=== PATIENT | female | born 1975 | race African-American/Black ===

== ENCOUNTER 2019-08-13 11:50 | Emergency (ER) | payer BC, OTHER ==
[~2019-08-13] VITALS: Ht 172.7 cm; Wt 104.3 kg
[2019-08-13 12:55] LABS: Urine Bacteria NONE SEEN /hpf (None Seen); Urine Blood 1+ /uL (Negative); Urine Specific Gravity 1.009 (1.001-1.035); Urine WBC 1 /hpf (0 - 5)
[2019-08-13 13:37] LABS: Basophils # (auto) 0 10 ^3/uL (0-0.2); Basophils % (auto) 0.7 % (0.0-2.0); Eosinophils # (auto) 0 10 ^3/uL (0-0.8); Hematocrit 40.9 % (36.0-46.0); Hemoglobin 13.6 g/dL (12.2-16.2); Lymphocytes # (auto) 2.1 10 ^3/uL (0.4-5.4); Lymphocytes % (auto) 47.2 % (10.0-50.0); Mean Corpuscular Hemoglobin 27.3 pg (28.0-32.0); Mean Corpuscular Hgb Conc. 33.3 g/dL (32.0-36.0); Monocytes # (auto) 0.3 10 ^3/uL (0-1.3); Neutrophils % (auto) 45.1 % (37.0-80.0); Nucleated Red Blood Cells % 0.2 %; Platelet Count (auto) 372 10^3/uL (140-450); Red Blood Cells 4.98 10^6/uL (4.0-5.20); Red Cell Distribution Width 14.1 % (11.8-14.3); White Blood Cell 4.3 10^3/uL (4.4-10.8)
[2019-08-13] MEDS ORDERED: SODIUM CHLORIDE 0.9% 1,000 ML IVB ONE (15:12)
[2019-08-13] MEDS ORDERED: KETOROLAC TROMETH 15 mg/ml 1ML VL IV ONE (15:15)
[2019-08-13 15:16] LABS: Alanine Aminotransferase 49 U/L (13-56); Albumin 3.9 g/dL (3.4-5.0); Anion Gap 8 (5-15); Aspartate Aminotransferase 20 U/L (15-37); BUN/Creatinine Ratio 7.1; Blood Urea Nitrogen 6 mg/dL (7-18); Calcium 8.8 mg/dL (8.5-10.1); Carbon Dioxide 31 mmol/L (21-32); Chloride 101 mmol/L (98-107); GFR African American 95 mL/min; GFR Non-African American 79 mL/min; Glucose 114 mg/dL (74-106); Sodium 140 mmol/L (136-145)
[2019-08-13 15:19] LABS: Alkaline Phosphatase 78 U/L (45-117); Bilirubin, Total 0.4 mg/dL (0.2-1.0); Total Protein 8.2 g/dL (6.4-8.2)
[2019-08-13] MEDS ORDERED: KETOROLAC TROMETH 30 MG/ML 1ML VIAL ONE (15:37)
[2019-08-13] MEDS ORDERED: PROMETHAZINE HCL 25 MG/ML 1ML IV ONE (17:15)
[2019-08-13] MEDS ORDERED: MORPHINE SULF INJ 2 MG/ML SYRINGE 1ML IV ONE (17:15)
[2019-08-13] MEDS ORDERED: POTASSIUM CHL 20 Meq TABLET PO ONE (18:00)
[2019-08-13 18:31] VITALS: BP 140/85
== END 2019-08-13 19:12 | disposition home or self-care (01) ==
LOC: ER 11:50
DX: R10.31 Right lower quadrant pain (principal); E87.6 Hypokalemia; E11.9 Type 2 diabetes mellitus without complications; I10 Essential (primary) hypertension
CPT/HCPCS: 36415; 74176; 80053; 81001; 81025; 83735; 85025; 96374; 96375; 99284; J1885; J2270; J2550; 96365

== ENCOUNTER 2021-09-07 08:56 | Inpatient (IN) | payer BC ==
[~2021-09-07] VITALS: Ht 172.7 cm; Wt 108.7 kg
[2021-09-07 10:28] LABS: Urine Bacteria FEW /hpf (None Seen); Urine Blood Negative /uL (Negative); Urine Specific Gravity 1.004 (1.001-1.035); Urine WBC 1 /hpf (0 - 5)
[2021-09-07 10:36] LABS: Basophils # (auto) 0 10 ^3/uL (0-0.2); Basophils % (auto) 0.8 % (0.0-2.0); Eosinophils # (auto) 0 10 ^3/uL (0-0.8); Eosinophils % (auto) 0.8 % (0.0-7.0); Hematocrit 36.7 % (36.0-46.0); Hemoglobin 12.4 g/dL (12.2-16.2); Lymphocytes # (auto) 2.3 10 ^3/uL (0.4-5.4); Lymphocytes % (auto) 39.6 % (10.0-50.0); Mean Corpuscular Hemoglobin 28.2 pg (28.0-32.0); Mean Corpuscular Hgb Conc. 33.7 g/dL (32.0-36.0); Mean Corpuscular Volume 83.7 fL (80.0-100.0); Monocytes # (auto) 0.3 10 ^3/uL (0-1.3); Neutrophils % (auto) 52.8 % (37.0-80.0); Nucleated Red Blood Cells % 0.2 %; Red Blood Cells 4.38 10^6/uL (4.0-5.20); Red Cell Distribution Width 13.7 % (11.8-14.3); White Blood Cell 5.7 10^3/uL (4.4-10.8)
[2021-09-07 10:43] LABS: Calcium 8.9 mg/dL (8.5-10.1); Potassium 3.1 mmol/L (3.5-5.1)
[2021-09-07 10:48] LABS: Albumin 3.9 g/dL (3.4-5.0); BUN/Creatinine Ratio 7.6; Bilirubin, Total 0.4 mg/dL (0.2-1.0); Total Protein 7.7 g/dL (6.4-8.2)
[2021-09-07] MEDS ORDERED: POTASSIUM CHL 20 Meq TABLET PO ONE (11:30)
[2021-09-07] MEDS ORDERED: KETOROLAC TROMETH 60MG/2ML VIAL IM ONE (11:30)
[2021-09-07] MEDS ORDERED: SODIUM CHLORIDE 0.9% 1,000 ML IV ONE (12:45)
[2021-09-07] MEDS ORDERED: MORPHINE SULFATE 4 MG/ML SYR/VIAL IV ONE (12:45)
[2021-09-07] MEDS ORDERED: ONDANSETRON HCL 4 MG/2 ML VIAL IV ONE (12:45)
[2021-09-07] MEDS ORDERED: LORazepam 0.5 MG TAB PO PRN (13:00)
[2021-09-07] MEDS ORDERED: MORPHINE SULFATE INJ 2 MG/ml SYRG IV PRN (13:00)
[2021-09-07] MEDS ORDERED: hydrALAZINE HCL 20 MG/ML VL IV PRN (13:00)
[2021-09-07] MEDS ORDERED: NITROGLYCERIN 0.4 MG SL TAB SL PRN (13:00)
[2021-09-07] MEDS ORDERED: ACETAMINOPHEN 325 MG TAB PO PRN (13:00)
[2021-09-07] MEDS ORDERED: DEXTROSE (50%) 50ML SYRG IV PRN (13:00)
[2021-09-07] MEDS: cefTRIAXone 1GM/50ML D5W 50 ML IV SCH (13:14)
[2021-09-07] MEDS: SODIUM CHLORIDE 0.9% 1,000 ML IV SCH ×2 (13:46→21:33)
[2021-09-07 13:59] LABS: Magnesium 2.2 mg/dL (1.6-2.6); Phosphorus 2.4 mg/dL (2.5-4.90)
[2021-09-07] MEDS: metroNIDAZOLE 500MG/100ML 100 ML IV SCH ×2 (14:47→21:31)
[2021-09-07 15:52] LABS: INR 1.12 (0.9-1.15)
[2021-09-07] MEDS: MORPHINE SULFATE INJ 2 MG/ml SYRG IV PRN ×2 (16:06→22:19)
[2021-09-07] MEDS: ONDANSETRON HCL 4 MG/2 ML VIAL IV PRN ×2 (16:06→22:13)
[2021-09-07] MEDS: InsuLIN REG 1unit/0.01ml Soln (100units/ml) SC SCH ×2 (17:00→21:33)
[2021-09-07] MEDS: ACCU-CHEK COMFORT CURVE STRIP VI SCH ×2 (17:02→21:33)
[2021-09-07] MEDS: HYDROcodone-ACET 5/325MG TAB PO PRN (18:47)
[2021-09-07] MEDS: POTASSIUM CHL 20 Meq TABLET PO SCH (21:31)
[2021-09-07 22:00] VITALS: BP 126/66
[2021-09-07] MEDS ORDERED: ATORVASTATIN 20 MG TAB PO SCH (22:00)
[2021-09-08 05:00] VITALS: BP 137/76
[2021-09-08 05:13] LABS: Basophils # (auto) 0.1 10 ^3/uL (0-0.2); Basophils % (auto) 2.1 % (0.0-2.0); Eosinophils # (auto) 0.1 10 ^3/uL (0-0.8); Eosinophils % (auto) 1.5 % (0.0-7.0); Hematocrit 33.8 % (36.0-46.0); Hemoglobin 11.7 g/dL (12.2-16.2); Lymphocytes # (auto) 1.8 10 ^3/uL (0.4-5.4); Lymphocytes % (auto) 39.4 % (10.0-50.0); Mean Corpuscular Hemoglobin 28.9 pg (28.0-32.0); Mean Corpuscular Hgb Conc. 34.8 g/dL (32.0-36.0); Mean Corpuscular Volume 83.2 fL (80.0-100.0); Monocytes # (auto) 0.3 10 ^3/uL (0-1.3); Monocytes % (auto) 6.9 % (0.0-12.0); Neutrophils # (auto) 2.3 10 ^3/uL (1.6-8.6); Neutrophils % (auto) 50.1 % (37.0-80.0); Nucleated Red Blood Cells % 0.3 %; Red Blood Cells 4.06 10^6/uL (4.0-5.20); Red Cell Distribution Width 14.1 % (11.8-14.3); White Blood Cell 4.5 10^3/uL (4.4-10.8)
[2021-09-08 05:28] LABS: INR 1.16 (0.9-1.15); Partial Thromboplastin Time 27.2 sec (23.6-33.0)
[2021-09-08] MEDS: metroNIDAZOLE 500MG/100ML 100 ML IV SCH ×3 (05:39→21:15)
[2021-09-08 05:50] LABS: Albumin 3.4 g/dL (3.4-5.0); BUN/Creatinine Ratio 7.5; Bilirubin, Total 0.5 mg/dL (0.2-1.0); CRP High Sensitivity 0.07 mg/dL (< 0.3); Calcium 7.6 mg/dL (8.5-10.1); Magnesium 2.1 mg/dL (1.6-2.6); Phosphorus 2.1 mg/dL (2.5-4.90); Total Protein 6.7 g/dL (6.4-8.2); Uric Acid 3.9 mg/dL (2.6-6.0)
[2021-09-08] MEDS: ACCU-CHEK COMFORT CURVE STRIP VI SCH ×4 (06:52→21:21)
[2021-09-08] MEDS: InsuLIN REG 1unit/0.01ml Soln (100units/ml) SC SCH ×4 (06:52→21:22)
[2021-09-08 09:04] VITALS: BP 123/70
[2021-09-08] MEDS ORDERED: ENOXAPARIN SOD 40 MG/0.4 ML SYRINGE SC SCH (10:00)
[2021-09-08] MEDS: POTASSIUM CHL 20 Meq TABLET PO SCH ×2 (10:07→21:14)
[2021-09-08] MEDS: cefTRIAXone 1GM/50ML D5W 50 ML IV SCH (10:08)
[2021-09-08] MEDS: HYDROcodone-ACET 5/325MG TAB PO PRN ×2 (11:04→18:07)
[2021-09-08 12:04] VITALS: BP 114/56
[2021-09-08] MEDS ORDERED: METF-771 PO (14:44)
[2021-09-08] MEDS ORDERED: GLIP5TAB12 PO (14:44)
[2021-09-08] MEDS ORDERED: LISI-716 PO (14:44)
[2021-09-08] MEDS ORDERED: AML5T PO (14:44)
[2021-09-08] MEDS ORDERED: ATOR10TA52 PO (14:44)
[2021-09-08 17:04] VITALS: BP 133/78
[2021-09-08] MEDS: ATORVASTATIN 20 MG TAB PO SCH (21:14)
[2021-09-08] MEDS: PANTOPRAZOLE 40 MG TAB PO SCH (21:14)
[2021-09-08] MEDS: MORPHINE SULFATE INJ 2 MG/ml SYRG IV PRN (21:23)
[2021-09-08 22:00] VITALS: BP 113/63
[2021-09-08] MEDS: SODIUM CHLORIDE 0.9% 1,000 ML IV SCH (23:05)
[2021-09-09 05:00] VITALS: BP 138/85
[2021-09-09 05:53] LABS: Basophils # (auto) 0 10 ^3/uL (0-0.2); Basophils % (auto) 0.9 % (0.0-2.0); Eosinophils # (auto) 0.1 10 ^3/uL (0-0.8); Eosinophils % (auto) 1.8 % (0.0-7.0); Hematocrit 34.8 % (36.0-46.0); Lymphocytes % (auto) 43.5 % (10.0-50.0); Mean Corpuscular Hemoglobin 28.8 pg (28.0-32.0); Mean Corpuscular Hgb Conc. 34.4 g/dL (32.0-36.0); Mean Corpuscular Volume 83.7 fL (80.0-100.0); Monocytes # (auto) 0.4 10 ^3/uL (0-1.3); Neutrophils # (auto) 2.1 10 ^3/uL (1.6-8.6); Neutrophils % (auto) 44.8 % (37.0-80.0); Nucleated Red Blood Cells % 0.3 %; Red Blood Cells 4.16 10^6/uL (4.0-5.20); White Blood Cell 4.6 10^3/uL (4.4-10.8)
[2021-09-09] MEDS: metroNIDAZOLE 500MG/100ML 100 ML IV SCH ×3 (06:07→21:21)
[2021-09-09] MEDS: InsuLIN REG 1unit/0.01ml Soln (100units/ml) SC SCH ×4 (06:07→23:21)
[2021-09-09] MEDS: ACCU-CHEK COMFORT CURVE STRIP VI SCH ×4 (06:08→23:22)
[2021-09-09 06:11] LABS: Albumin 3.4 g/dL (3.4-5.0); Calcium 7.8 mg/dL (8.5-10.1); Potassium 3.1 mmol/L (3.5-5.1)
[2021-09-09 06:16] LABS: BUN/Creatinine Ratio 6.5; Bilirubin, Total 0.4 mg/dL (0.2-1.0); Total Protein 6.7 g/dL (6.4-8.2)
[2021-09-09] MEDS: cefTRIAXone 1GM/50ML D5W 50 ML IV SCH (08:50)
[2021-09-09] MEDS: PANTOPRAZOLE 40 MG TAB PO SCH ×2 (08:50→21:19)
[2021-09-09] MEDS: POTASSIUM CHL 20 Meq TABLET PO SCH (08:51)
[2021-09-09 09:00] VITALS: BP 116/55
[2021-09-09] MEDS: MORPHINE SULFATE INJ 2 MG/ml SYRG IV PRN ×3 (09:11→23:50)
[2021-09-09] MEDS ORDERED: DEXTROSE (50%) 50ML SYRG IV PRN (11:15)
[2021-09-09] MEDS ORDERED: POTASSIUM CHLORIDE 40 MEQ, LIDOCAINE 1% (LOCAL ANESTH.) 4 ML in SODIUM CHL 0.9% 250 ML IV ONE (11:15)
[2021-09-09] MEDS ORDERED: ceFAZolin 1GM/50ML 50 ML IV ONE (12:15)
[2021-09-09 12:51] VITALS: BP 128/73
[2021-09-09] MEDS ORDERED: MEPERIDINE HCL (50 MG/ML) 1 ML VIAL ONE (13:24)
[2021-09-09] MEDS ORDERED: fentaNYL CITRATE 100 MCG/2 ML VL ONE (13:24)
[2021-09-09] MEDS ORDERED: MIDAZOLAM HCL 2MG/2ML 2ml VIAL (1mg/ml) ONE (13:24)
[2021-09-09] MEDS ORDERED: DexAMETHasone SOD PHOS 10MG/1ML VIAL INJ ONE (13:24)
[2021-09-09] MEDS ORDERED: PROPOFOL 10 MG/ML 20 ML IV ONE (13:24)
[2021-09-09] MEDS ORDERED: ROCURONIUM 10MG/ML 10ML VIAL IV ONE (13:25)
[2021-09-09] MEDS ORDERED: POVIDONE IODINE 10 % TOPICAL OINT 30GM TOP ONE (13:36)
[2021-09-09] MEDS ORDERED: BUPIVACAINE 0.25% INJ 50ML VIAL ONE (13:36)
[2021-09-09] MEDS ORDERED: LIDOCAINE 1%-Mpf/Epinephrine 1:200,000 ONE (13:36)
[2021-09-09] MEDS ORDERED: HYDROmorphone HCL 2 MG/ML VL/or syr ONE ×2 (14:36→14:57)
[2021-09-09] MEDS: HYDROmorphone HCL 2 MG/ML VL/or syr IV PRN ×5 (14:58→15:38)
[2021-09-09] MEDS ORDERED: ONDANSETRON HCL 4 MG/2 ML VIAL IV PRN (15:00)
[2021-09-09] MEDS: SODIUM CHLORIDE 0.9% 1,000 ML IV SCH (16:06)
[2021-09-09 16:45] VITALS: BP 138/78
[2021-09-09 16:53] VITALS: BP 127/74
[2021-09-09] MEDS: ONDANSETRON HCL 4 MG/2 ML VIAL IV PRN ×2 (17:37→21:37)
[2021-09-09] MEDS: HYDROcodone-ACET 5/325MG TAB PO PRN (21:20)
[2021-09-09] MEDS: ATORVASTATIN 20 MG TAB PO SCH (21:20)
[2021-09-09 22:00] VITALS: BP 135/72
[2021-09-10 05:00] VITALS: BP 114/48
[2021-09-10] MEDS: ACCU-CHEK COMFORT CURVE STRIP VI SCH ×4 (05:06→23:42)
[2021-09-10] MEDS: InsuLIN REG 1unit/0.01ml Soln (100units/ml) SC SCH ×5 (05:07→23:47)
[2021-09-10] MEDS: metroNIDAZOLE 500MG/100ML 100 ML IV SCH ×3 (05:07→22:01)
[2021-09-10] MEDS: ONDANSETRON HCL 4 MG/2 ML VIAL IV PRN (05:08)
[2021-09-10] MEDS: MORPHINE SULFATE INJ 2 MG/ml SYRG IV PRN ×2 (05:50→12:44)
[2021-09-10 06:22] LABS: Basophils # (auto) 0 10 ^3/uL (0-0.2); Basophils % (auto) 0.2 % (0.0-2.0); Eosinophils # (auto) 0 10 ^3/uL (0-0.8); Hemoglobin 12.1 g/dL (12.2-16.2); Lymphocytes # (auto) 0.5 10 ^3/uL (0.4-5.4); Lymphocytes % (auto) 6.7 % (10.0-50.0); Mean Corpuscular Hemoglobin 28.5 pg (28.0-32.0); Mean Corpuscular Hgb Conc. 34.5 g/dL (32.0-36.0); Mean Corpuscular Volume 82.6 fL (80.0-100.0); Monocytes # (auto) 0.2 10 ^3/uL (0-1.3); Monocytes % (auto) 2.5 % (0.0-12.0); Neutrophils # (auto) 7.3 10 ^3/uL (1.6-8.6); Neutrophils % (auto) 90.6 % (37.0-80.0); Red Blood Cells 4.24 10^6/uL (4.0-5.20); White Blood Cell 8.1 10^3/uL (4.4-10.8)
[2021-09-10 06:42] LABS: Albumin 3.4 g/dL (3.4-5.0); Calcium 8.3 mg/dL (8.5-10.1); Potassium 3.8 mmol/L (3.5-5.1)
[2021-09-10 06:44] LABS: BUN/Creatinine Ratio 7.2
[2021-09-10 06:52] LABS: Bilirubin, Total 0.4 mg/dL (0.2-1.0)
[2021-09-10 09:21] VITALS: BP 118/45
[2021-09-10] MEDS: cefTRIAXone 1GM/50ML D5W 50 ML IV SCH (10:00)
[2021-09-10] MEDS: SODIUM CHLORIDE 0.9% 1,000 ML IV SCH (10:00)
[2021-09-10] MEDS: HYDROcodone-ACET 5/325MG TAB PO PRN ×2 (10:01→20:41)
[2021-09-10] MEDS: PANTOPRAZOLE 40 MG TAB PO SCH ×2 (10:01→22:02)
[2021-09-10 12:57] VITALS: BP 137/63
[2021-09-10 17:07] VITALS: BP 125/66
[2021-09-10 22:00] VITALS: BP 124/53
[2021-09-10] MEDS: ATORVASTATIN 20 MG TAB PO SCH (22:02)
[2021-09-10] MEDS: DOCUSATE SOD 100 MG CAP PO PRN ×2 (22:08→22:09)
[2021-09-11] MEDS: MORPHINE SULFATE INJ 2 MG/ml SYRG IV PRN (00:02)
[2021-09-11] MEDS: SODIUM CHLORIDE 0.9% 1,000 ML IV SCH (01:05)
[2021-09-11 05:00] VITALS: BP 112/53
[2021-09-11] MEDS: metroNIDAZOLE 500MG/100ML 100 ML IV SCH (05:32)
[2021-09-11] MEDS: ACCU-CHEK COMFORT CURVE STRIP VI SCH ×2 (05:32→11:28)
[2021-09-11] MEDS: InsuLIN REG 1unit/0.01ml Soln (100units/ml) SC SCH ×2 (05:36→11:28)
[2021-09-11] MEDS: HYDROcodone-ACET 5/325MG TAB PO PRN (06:11)
[2021-09-11] MEDS: DOCUSATE SOD 100 MG CAP PO PRN (06:12)
[2021-09-11 09:00] VITALS: BP_SYST 126; BP_SYST 159; BP_DIAS 62; BP_DIAS 74
[2021-09-11] MEDS: cefTRIAXone 1GM/50ML D5W 50 ML IV SCH (09:18)
[2021-09-11] MEDS: PANTOPRAZOLE 40 MG TAB PO SCH (09:18)
[2021-09-11] MEDS ORDERED: CEPH-509 PO (10:17)
[2021-09-11] MEDS ORDERED: HYDR-4902 PO (10:18)
[2021-09-11 13:00] VITALS: BP 147/74
== END 2021-09-11 12:56 | disposition home or self-care (01) | DRG 342 ==
LOC: ER 08:56 → OVERFLOW 12:48 → EAST 16:53
PROVIDERS: ADMIT Hospitalist; ATTEND Internal Medicine
PROC: 0W9G40Z Drainage of Peritoneal Cavity with Drainage Device, Percutaneous Endoscopic Approach (ICD-10-PCS; 2021-09-09)
PROC: 0DTJ4ZZ Resection of Appendix, Percutaneous Endoscopic Approach (ICD-10-PCS; principal; 2021-09-09 13:38)
DX: R10.11 Right upper quadrant pain (principal); R18.8 Other ascites; N83.202 Unspecified ovarian cyst, left side; I10 Essential (primary) hypertension; E11.9 Type 2 diabetes mellitus without complications; E66.01 Morbid (severe) obesity due to excess calories; K66.0 Peritoneal adhesions (postprocedural) (postinfection); Z20.822 Contact with and (suspected) exposure to COVID-19; R82.71 Bacteriuria; E78.5 Hyperlipidemia, unspecified; K76.0 Fatty (change of) liver, not elsewhere classified; Z68.35 Body mass index [BMI] 35.0-35.9, adult; Z90.49 Acquired absence of other specified parts of digestive tract
CPT/HCPCS: 36415; 71045; 74176; 74181; 76705; 76830; 76856; 80053; 80061; 81001; 82550; 82728; 82962; 83036; 83615; 83690; 83735; 83880; 84100; 84443; 84484; 84550; 84702; 85025; 85379; 85610; 85652; 85730; 86141; 86850; 86900; 86901; 87040; 87086; 96361; 96372; 96374; G0378; J0690; J0696; J1100; J1815; J1885; J2001; J2250; J2405; J2704; J3490

== ENCOUNTER 2021-12-21 09:19 | Emergency (ER) | payer BC ==
[~2021-12-21] VITALS: Ht 172.7 cm; Wt 104.6 kg
[~2021-12-21 09:19] MED LIST: AML5T PO; ATOR10TA52 PO; CEPH-509 PO; GLIP5TAB12 PO; LISI-716 PO; METF-771 PO
[2021-12-21 11:44] VITALS: BP 134/90
[2021-12-21] MEDS ORDERED: ACETAMINOPHEN 325 MG TAB PO ONE (12:30)
[2021-12-21] MEDS ORDERED: cefTRIAXone SOD 1,000 MG VL IM ONE (12:30)
[2021-12-21] MEDS ORDERED: AZIT500T66 PO (12:50)
[2021-12-21] MEDS ORDERED: LIDO2SOL23 MT (12:50)
== END 2021-12-21 12:58 | disposition home or self-care (01) ==
LOC: ER 09:19
DX: J03.90 Acute tonsillitis, unspecified (principal); E11.9 Type 2 diabetes mellitus without complications; I10 Essential (primary) hypertension; M19.90 Unspecified osteoarthritis, unspecified site
CPT/HCPCS: 96372; 99283; J0696

== ENCOUNTER 2022-02-11 12:18 | Emergency (ER) | payer BC ==
[~2022-02-11] VITALS: Ht 172.7 cm; Wt 101.8 kg
[~2022-02-11 12:18] MED LIST changes: +AZIT500T66 PO; +LIDO2SOL23 MT
[2022-02-11 12:59] VITALS: BP 150/87
== END 2022-02-11 13:32 | disposition home or self-care (01) ==
LOC: ER 12:18
DX: S93.504A Unspecified sprain of right lesser toe(s), initial encounter (principal); E11.9 Type 2 diabetes mellitus without complications; I10 Essential (primary) hypertension; Z90.49 Acquired absence of other specified parts of digestive tract; M19.90 Unspecified osteoarthritis, unspecified site; Z79.899 Other long term (current) drug therapy; W23.0XXA Caught, crushed, jammed, or pinched between moving objects, initial encounter; Y93.89 Activity, other specified; Y92.89 Other specified places as the place of occurrence of the external cause; Y99.8 Other external cause status
CPT/HCPCS: 73630

== ENCOUNTER 2023-02-06 13:01 | Emergency (ER) | payer BC ==
[~2023-02-06] VITALS: Ht 172.7 cm; Wt 99.5 kg
[~2023-02-06 13:01] MED LIST changes: -LIDO2SOL23 MT; +LIDO2SOL26 MT; -LISI-716 PO; +LISI10TA34 PO
[2023-02-06] MEDS ORDERED: KETOROLAC TROMETH 30 MG/ML 1ML VIAL IM ONE (14:00)
[2023-02-06] MEDS ORDERED: IBUPROFEN 800 MG TAB PO ONE (20:45)
[2023-02-06] MEDS ORDERED: NAP500T PO (21:13)
[2023-02-06 21:44] LABS: Urine Bacteria FEW /hpf (None Seen); Urine Blood Negative /uL (Negative); Urine Clarity HAZY (Clear); Urine Color Yellow (Yellow); Urine Hyaline Cast FEW /lpf (0 - 2); Urine Mucus FEW (None Seen); Urine Protein, UAD 2+ (Negative); Urine Specific Gravity 1.035 (1.001-1.035); Urine Urobilinogen Normal (Negative); Urine WBC 9 /hpf (0 - 5)
[2023-02-06] MEDS ORDERED: MORPHINE SULFATE 4 MG/ML SYR/VIAL IM ONE (23:15)
[2023-02-06 23:35] VITALS: BP 168/99; PULSE 87; RESP 19; O2SAT 97
[2023-02-08 18:06] LABS: Chlamydia Trachomatis, NAA Negative (Negative); Neisseria gonorrhoeae, NAA Negative (Negative)
== END 2023-02-06 22:39 | disposition home or self-care (01) ==
LOC: ER 13:01
DX: D21.9 Benign neoplasm of connective and other soft tissue, unspecified (principal); E11.9 Type 2 diabetes mellitus without complications; I10 Essential (primary) hypertension; Z90.49 Acquired absence of other specified parts of digestive tract; Z98.890 Other specified postprocedural states; Z79.899 Other long term (current) drug therapy; Z79.82 Long term (current) use of aspirin; Z79.84 Long term (current) use of oral hypoglycemic drugs
CPT/HCPCS: 76856; 81001; 81025; 87491; 87591; 96372; 99285; J2270

== ENCOUNTER 2025-03-17 15:02 | Outpatient (CLI) | payer BC ==
[~2025-03-17 15:02] MED LIST changes: -GLIP5TAB12 PO; +GLIP5TAB21 PO; +NAP500T PO
[2025-03-17 15:24] LABS: Hematocrit 35.1 % (36.0-46.0); Hemoglobin 11.8 g/dL (12.2-16.2); Mean Corpuscular Hemoglobin 27.7 pg (28.0-32.0); Mean Corpuscular Volume 82.3 fL (80.0-100.0); Nucleated Red Blood Cells % 0.2 %
[2025-03-17 16:32] LABS: Alanine Aminotransferase 19 U/L (7-40); Albumin 4.5 g/dL (3.2-4.8); Alkaline Phosphatase 77 U/L (46-116); Anion Gap 10 (5-15); BUN/Creatinine Ratio 7.7 (10.0-20.0); Bilirubin, Total 0.6 mg/dL (0.2-1.0); Calcium 9.5 mg/dL (8.7-10.4); Carbon Dioxide 30 mmol/L (20-31); Chloride 102 mmol/L (98-107); Glucose 101 mg/dL (74-106); Sodium 142 mmol/L (136-145); Total Protein 7.5 g/dL (5.7-8.2)
[2025-03-17 16:33] LABS: Total Iron Binding Capacity 395.0 ug/dL (250-425)
[2025-03-17 16:38] LABS: Blood Urea Nitrogen 6 mg/dL (9-23); Iron 40.0 ug/dL (50-170); Potassium 3.2 mmol/L (3.5-5.1)
== END 2025-03-17 17:00 | disposition home or self-care (01) ==
LOC: LAB 15:02
PROVIDERS: ATTEND Licensed Practical Nurse
DX: Z00.00 Encounter for general adult medical examination without abnormal findings (principal)
CPT/HCPCS: 36415; 80053; 82728; 83540; 83550; 85025

== ENCOUNTER 2025-03-25 07:38 | Outpatient (CLI) | payer BC | END 2025-03-25 17:00 | disposition home or self-care (01) | LOC: XYW 07:38 | PROVIDERS: ATTEND Licensed Practical Nurse | DX: I10 Essential (primary) hypertension (principal) | CPT/HCPCS: 93306 ==

== ENCOUNTER 2025-03-30 06:09 | Inpatient (IN) | payer BC ==
[2025-03-23 11:29] LABS: Urine Protein, UAD Negative (Negative)
[2025-03-23 11:34] LABS: INR 1.08 (0.9-1.15); Partial Thromboplastin Time 27.3 SEC (24.5-34.5); Prothrombin Time 11.4 sec (9.3-11.8)
[2025-03-23 11:40] LABS: Hematocrit 33.3 % (36.0-46.0); Hemoglobin 11.3 g/dL (12.2-16.2); Mean Corpuscular Hemoglobin 27.9 pg (28.0-32.0); Mean Corpuscular Volume 82.4 fL (80.0-100.0); Nucleated Red Blood Cells % 0.0 %
[2025-03-23 11:44] LABS: Alanine Aminotransferase 15 U/L (7-40); Albumin 4.4 g/dL (3.2-4.8); Alkaline Phosphatase 67 U/L (46-116); Anion Gap 9 (5-15); BUN/Creatinine Ratio 8.5 (10.0-20.0); Calcium 9.4 mg/dL (8.7-10.4); Carbon Dioxide 30 mmol/L (20-31); Chloride 103 mmol/L (98-107); Glucose 100 mg/dL (74-106); Sodium 142 mmol/L (136-145); Total Protein 7.1 g/dL (5.7-8.2)
[2025-03-23 11:45] LABS: Bilirubin, Total 0.5 mg/dL (0.2-1.0); Blood Urea Nitrogen 7 mg/dL (9-23); Potassium 3.1 mmol/L (3.5-5.1)
[2025-03-30] VITALS (18 sets, daily range): BP systolic 122–155; BP diastolic 70–93; PULSE 70–108; RESP 12–18; TEMP 97.8–98.7; O2SAT 90–100
[~2025-03-30] VITALS: Ht 172.7 cm; Wt 95.7 kg
[~2025-03-30 06:09] MED LIST changes: -AZIT500T66 PO; -CEPH-509 PO; -LIDO2SOL26 MT; -NAP500T PO
[2025-03-30] MEDS ORDERED: MORPHINE SULF PF 5 MG/10 ML VIAL ONE (07:07)
[2025-03-30] MEDS ORDERED: MIDAZOLAM HCL 2MG/2ML 2ml VIAL (1mg/ml) ONE (07:08)
[2025-03-30] MEDS ORDERED: GLYCOPYRROLATE 0.2 MG/ML 1ML VIAL ONE (07:08)
[2025-03-30] MEDS ORDERED: PROPOFOL 10 MG/ML 20 ML IV ONE (07:08)
[2025-03-30] MEDS ORDERED: ONDANSETRON HCL 4 MG/2 ML VIAL ONE (07:08)
[2025-03-30] MEDS ORDERED: KETOROLAC TROMETH 30 MG/ML 1ML VIAL ONE (07:08)
[2025-03-30] MEDS ORDERED: fentaNYL CITRATE 100 MCG/2 ML VL ONE (07:08)
[2025-03-30] MEDS ORDERED: KETAMINE 50mg/ML 1ml syringe ONE (07:16)
[2025-03-30] MEDS ORDERED: BUPIVACAINE/DEXTROSE MPF 0.75% 2 ML AMP IT ONE (07:17)
[2025-03-30] MEDS: CELECOXIB 100 MG CAP ONE (07:22)
[2025-03-30] MEDS: ACETAMINOPHEN IV 100 ML IV ONE (07:23)
[2025-03-30] MEDS: PREGABALIN CAPSULE 75 MG CAP ONE (07:23)
[2025-03-30] MEDS: ACETAMINOPHEN IV 1000 MG/100ML (10MG/ML) IV ONE (07:35)
[2025-03-30] MEDS: PREGABALIN CAPSULE 75 MG CAP PO ONE (07:35)
[2025-03-30] MEDS: CELECOXIB 100 MG CAP PO ONE (07:35)
[2025-03-30] MEDS: ceFAZolin 2 GM/D5W50ml 50 ML IV ONE (07:37)
[2025-03-30] MEDS: CEFEPIME 1GM/50ML 50 ML IV ONE (07:47)
[2025-03-30] MEDS: TRANEXAMIC ACID 20 ML ONE (07:57)
[2025-03-30] MEDS: VANCOMYCIN HCL 1000 MG VL ONE (08:49)
--- NOTE | 2025-03-30 09:05 | DVHOP2 ---
Discharge Orders Discharge Orders DISCHARGE WHEN CRITERIA MET DISCHARGE WHEN CRITERIA MET. Operative Rep- Outpatient Operative Report PRE-OP DIAGNOSIS: Right knee osteoarthritis POST-OP DIAGNOSIS: Same [place] protocol followed: Yes ESTIMATED BLOOD LOSS: 20 cc PROCEDURE: Right total knee arthroplasty Computer navigation right total knee arthroplasty Application of negative pressure wound VAC right total knee SURGEON/VEHICLE UPHOLSTERER: Yoni PHILLIPS ANESTHESIA: General ANESTHESIOLOGIST: INFORMED CONSENT: Informed Consent: Discussed all inherent risks, complications, and alternatives treatments with the patient. Patient has agreed to proceed with the procedure. I have reviewed all pre-operative assessments including Labs, EKGs, and radiographic images that has been performed. Patient is an appropriate candidate for the outpatient surgical center procedure. The patient is a 49-year-old female who was very young for a total knee arthroplasty however the patient has failed all conservative treatment with physical therapy activity modification has ongoing pain in the right knee she has failed all conservative treatments based on the right knee based on these parameters the patient is educated on the cement of surgical and nonsurgical tr eatment of the right lower extremity she does understand the total knee arthroplasty of the age of 49 this is a significantly young we decided to do a cementless total knee arthroplasty and not resurface the patella we would do a patellar neurectomy to stabilize and minimize bone loss in the setting and space the patient is seen in the preoperative holding of the right lower extremity was marked the patient was brought to operative suite general anesthesia was then induced time-out was hospital protocol the right lower extremity was prepped and draped in the standard fashion Ancef was given for infection prophylaxis TXA was given for bleeding prophylaxis the right lower extremity was then prepped and draped once I was then done incision was made through skin subcu tissue down the quad junction and medial parapatellar arthrotomy was then created once it was then created in the appropriate manner of the fat pad was then removed of the anterior aspect of the patellofemoral once I was then done the ACL was then t ransected along with the anterior horn of the medial and lateral meniscus once I was then created on the computer navigation with the 10 mm off the lateral side with a 200 mL and a 0.5 mm degree of posterior slope based on the MC poly based on the PCL being sacrificed with the closed down the flexion gap in that aspect of the 2 slope was Mr. That a 2.5 mm with the computer navigation once the 2.5 degree slope was then set the computer navigation of the proximal tibia was then completed in the appropriate manner once it was then completed in the appropriate manner with a of the 2.5 mm cut of the distal femoral cut with the 4 1 cutting block was then done with a 3 of flexion with with the kinematic and mechanical axis with a neutral varus valgus plane with the distal femoral cut being completed the femoral sizing block was noted to be a 5 5 femoral and then of the form 1 cutting block was then used the posterior osteophytes were carefully done the posterior capsule was then released to help with the extension gap and 11 in her spacer block it was balanced in flexion and extension once I was then completed in the size 3 tibial base plate along the medial 1/3 of tibial tubercle was punched and killed once I was then done on patellar neurectomy was then completed once I was then done all the trial components were carefully removed size 3 consult lock [facility] tibial base plate as melena position followed by 11 MC poly followed by a size 5 femoral component of the knee was irrigated by copiously with saline followed by Betadine followed by vancomycin powder followed by Ethibond followed by 1. Stratafix followed by 0 Vicryl followed by 2-0 Vicryl followed by gold followed by a negative pressure wound VAC. The patient will be weight-bearing as tolerated in the right lower extremity PT OT out of bed daily follow up in 2 weeks' time YONI LYNNE MD Mar 30, 2025 09:05
[2025-03-30] MEDS: MORPHINE SULF PF 5 MG/10 ML VIAL ONE (09:24)
[2025-03-30] MEDS: KETOROLAC TROMETH 30 MG/ML 1ML VIAL ONE (09:24)
[2025-03-30] MEDS: BUPIVACAINE W/ EPINEPH 0.25% INJ 50ML MDV ONE (09:24)
[2025-03-30] MEDS: ROPIVACAINE 0.5% (5MG/ML) 20ML AMPULE IJ ONE (09:34)
[2025-03-30] MEDS ORDERED: NITROGLYCERIN 0.4 MG SL TAB SL PRN (09:45)
[2025-03-30] MEDS ORDERED: HYDROmorphone HCL 2 MG/ML VL/or syr IV PRN (09:45)
[2025-03-30] MEDS ORDERED: ACETAMINOPHEN 325 MG TAB PO PRN (09:45)
[2025-03-30] MEDS ORDERED: diphenhydrAMINE HCL 50 MG/1 ML VL IV PRN (09:45)
[2025-03-30] MEDS ORDERED: NALOXONE HCL 0.4 MG/ML VIAL IV PRN (09:45)
[2025-03-30] MEDS ORDERED: ONDANSETRON HCL 4 MG/2 ML VIAL IV PRN (09:45)
[2025-03-30] MEDS ORDERED: MORPHINE SULFATE INJ 2 MG/ml SYRG IV PRN (09:45)
--- NOTE | 2025-03-30 09:53 | DVHNC2 ---
Procedure - Right adductor canal block done for post-operative analgesia after right total knee arthroplasty. Informed consent obtained pre-op. Right thigh anatomy examined under ultrasound. 4" 20G nerve block needle placed with ultrasound guidance and 20cc 0.5% ropivacaine was incrementally injected with multiple negative aspirations. No heme. Patient tolerated well. Will follow as needed. DARRELL RODRIGUEZ MD Mar 30, 2025 09:53
[2025-03-30] MEDS: ENOXAPARIN SOD 40 MG/0.4 ML SYRINGE SC SCH (10:00)
--- NOTE | 2025-03-30 10:43 | DVH ---
EXAM: XY R KNEE 3V XRAY CLINICAL INDICATION: S/P SURGERY TECHNIQUE: XY R KNEE 3V XRAY COMPARISON: XR KNEE RIGHT 3 VIEW on DOS: 12/29/24, MR KNEE RIGHT WO on DOS: 12/09/24 FINDINGS/IMPRESSION: There is no evidence of acute fracture or dislocation. Patient is status post total right knee arthroplasty. Postoperative changes noted.
[2025-03-30] MEDS: OXYCODONE W/ ACETAMINOPHEN 5/325MG TABLET PO PRN (10:53)
--- NOTE | 2025-03-30 12:40 | DVHINCON2 ---
Date Seen: Mar 30, [address] LYNNE Family History: Hypertension G8 MOTHER G8 FATHER Allergies: Coded Allergies: NO KNOWN ALLERGIES (Unverified , 08/13/19) Home Meds Reported Medications Amlodipine Besylate (NORVASC TABLET) 5 Mg Tb, 10 MG PO DAILY, TAB 09/08/21 Atorvastatin Calcium (ATORVASTATIN CALCIUM) 10 Mg Tab, 1 TAB PO DAILY, #30 TAB 5 Refills 09/08/21 Lisinopril (Lisinopril) 10 Mg Tab, 10 MG PO DAILY, TAB 09/08/21 Metformin Hydrochloride (Metformin HCl ER) 500 Mg Tab, 500 MG PO DAILY, TAB 09/08/21 Glipizide (Glipizide) 5 Mg Tab, 5 MG PO DAILY for 30 Days, MG 09/08/21 Current Medications Current Medications Medications (Trade) Dose Ordered Sig/Yulia Route PRN Reason Start Time Stop Time Status Last Admin Cefazolin Sodium 50 ml @ 50 mls/hr Q6H IV 03/30/25 13:00 03/31/25 01:59 Acetaminophen (Tylenol Tablet) 650 mg Q6HP PRN PO MILD PAIN OR TEMP >101 03/30/25 09:45 Oxycodone/ Acetaminophen (Percocet 5/ 325MG Tablet) 1 tab Q4HP PRN PO MODERATE PAIN 03/30/25 09:45 03/30/25 10:53 Hydromorphone HCl (Dilaudid Injection) 1 mg Q2HP PRN IV SEVERE PAIN (7-10 PAIN SCALE) 03/30/25 09:45 Ondansetron HCl (Zofran) 4 mg Q6HP PRN IV NAUSEA / VOMITING 03/30/25 09:45 03/30/25 09:59 DC Docusate Sodium (Colace Capsule) 100 mg Q12HR PO 03/30/25 10:00 Enoxaparin Sodium (Lovenox) 40 mg DAILY SC 03/30/25 10:00 Nitroglycerin (Ntrostat Sublingual) 0.4 mg Q5MINP PRN SL FOR CHEST PAIN 03/30/25 09:45 Morphine Sulfate 2 mg Q30M PRN IV FOR CHEST PAIN 03/30/25 09:45 Diphenhydramine HCl (Benadryl Injection) 25 mg Q4HP PRN IV FOR ITCHING 03/30/25 09:45 Ondansetron HCl (Zofran) 4 mg Q4HP PRN IV NAUSEA / VOMITING 03/30/25 09:45 Naloxone HCl (Narcan) 0.2 mg Q5M PRN IV For respirations < than 10/min 03/30/25 09:45 03/30/25 09:56 DC Dexamethasone Sodium Phosphate (Decadron Injection) 10 mg PRESCHOOL SUBSTITUTE TEACHER PRN IV FOR ITCHING 03/30/25 09:45 03/30/25 09:56 DC Ketorolac Tromethamine (Toradol Injection) 30 mg Q6HP PRN IV MODERATE PAIN (4-6 PAIN SCALE) 03/30/25 09:45 04/04/25 09:44 Vital Signs Vital Signs Date Time Temp Pulse Resp B/P (MAP) Pulse Ox O2 Delivery O2 Flow Rate FiO2 03/30/25 12: 88 16 100 03/30/25 11:30 97.8 129/79 (96) 97.8 03/30/25 11:24 Nasal Cannula* 2 28 Labs/Diagnostic Data Labs Test 03/30/25 10:06 03/27/25 13:45 03/23/25 11:00 Range/Units POC Glucose 90 70-106 mg/dl Urine Test Negative Negative White Blood Count 4.8 4.4-10.8 10^3/uL Red Blood Count 4.04 4.0-5.20 10^6/uL Hemoglobin 11.3 L 12.2-16.2 g/dL Hematocrit 33.3 L 36.0-46.0 % Mean Corpuscular Volume 82.4 80.0-100.0 fL Mean Corpuscular Hemoglobin 27.9 L 28.0-32.0 pg Mean Corpuscular Hemoglobin Concent 33.8 32.0-36.0 g/dL Red Cell Distribution Width 15.8 H 11.8-14.3 % Platelet Count 339 140-450 10^3/uL Mean Platelet Volume 7.7 6.9-10.8 fL Neutrophils (%) (Auto) 51.1 37.0-80.0 % Lymphocytes (%) (Auto) 38.4 10.0-50.0 % Monocytes (%) (Auto) 7.9 0.0-12.0 % Eosinophils (%) (Auto) 2.0 0.0-7.0 % Basophils (%) (Auto) 0.6 0.0-2.0 % Neutrophils # (Auto) 2.5 1.6-8.6 10 ^3/uL Lymphocytes # (Auto) 1.9 0.4-5.4 10 ^3/uL Monocytes # (Auto) 0.4 0-1.3 10 ^3/uL Eosinophils # (Auto) 0.1 0-0.8 10 ^3/uL Basophils # (Auto) 0 0-0.2 10 ^3/uL Nucleated Red Blood Cells 0.0 % Prothrombin Time 11.4 9.3-11.8 sec Prothrombin Time INR 1.08 0.9-1.15 Activated Partial Thromboplast Time 27.3 24.5-34.5 SEC Urine Color Light-yellow Yellow Urine Clarity Clear Clear Urine pH 6.5 5.0-9.0 Urine Specific Taylor 1.014 1.001-1.035 Urine Protein Negative Negative Urine Ketones Negative Negative Urine Blood Negative Negative /uL Urine Nitrite Negative Negative Urine Bilirubin Negative Negative Urine Urobilinogen Normal Negative mg/dL Urine Leukocyte Esterase Negative Negative /uL Urine RBC <1 0 - 4 /hpf Urine Microscopic WBC 1 0-5 /HPF Urine Squamous Epithelial Cells Few <5 /hpf Urine Bacteria None seen None Seen /hpf Urine Hyaline Casts Few 0 - 2 /lpf Urine Glucose Normal Normal mg/dL Sodium Level 142 136-145 mmol/L Potassium Level 3.1 L 3.5-5.1 mmol/L Chloride Level 103 98-107 mmol/L Carbon Dioxide Level 30 20-31 mmol/L Anion Gap 9 5-15 Blood Urea Nitrogen 7 L 9-23 mg/dL Creatinine 0.82 0.550-1.02 mg/dL Glomerular Filtration Rate Calc 88 >90 mL/min BUN/Creatinine Ratio 8.5 L 10.0-20.0 Serum Glucose 100 74-106 mg/dL Hemoglobin A1c 5.9 H <5.7 % A1C Calcium Level 9.4 8.7-10.4 mg/dL Total Bilirubin 0.5 0.2-1.0 mg/dL Aspartate Amino Transferase (AST) 17 13-40 U/L Alanine Aminotransferase (ALT) 15 7-40 U/L Alkaline Phosphatase 67 46-116 U/L Total Protein 7.1 5.7-8.2 g/dL Albumin 4.4 3.2-4.8 g/dL Assessment SEE DICTATED NOTE Plan discussed with: Patient, Spouse Date of Service: Mar 30, 2025 Billing Provider: JACQUELINE HARRELL MD Common Visit Codes: [id number] INP/OBS CARE (HIGH) JACQUELINE HARRELL MD Mar 30, 2025 12:40
[2025-03-30] MEDS ORDERED: DEXTROSE (50%) 50ML SYRG IV PRN (12:45)
[2025-03-30] MEDS: DOCUSATE SOD 100 MG CAP PO SCH (12:52)
[2025-03-30] MEDS: KETOROLAC TROMETH 30 MG/ML 1ML VIAL IV PRN (12:52)
[2025-03-30] MEDS: ceFAZolin 1GM/50ML 50 ML IV SCH (14:39)
[2025-03-30] MEDS: ACCU-CHEK COMFORT CURVE STRIP VI SCH (16:36)
[2025-03-30] MEDS: InsuLIN REG 1unit/0.01ml Soln (100units/ml) SC SCH (16:36)
[2025-03-30] MEDS: HYDROmorphone HCL 2 MG/ML VL/or syr IV PRN (21:06)
[2025-03-31] VITALS (21 sets, daily range): BP systolic 119–164; BP diastolic 68–111; PULSE 76–100; RESP 15–19; TEMP 98.1–99.3; O2SAT 90–100
--- NOTE | 2025-03-31 01:17 | DVHINCON2 ---
DATE OF CONSULTATION: 03/30/2025 INTERNAL MEDICINE CONSULT HISTORY OF PRESENT ILLNESS: The patient is a 49-year-old lady who was admitted after she underwent surgery on the right knee for DJD of the knee. The patient at this time complaints of mild pain. No chest pain, no shortness of breath, no nausea or vomiting. REVIEW OF SYSTEMS: Review of rest of systems are otherwise currently negative. PAST MEDICAL HISTORY: Significant for diabetes, hypertension, and hyperlipidemia. MEDICATIONS: She takes amlodipine, Lipitor, glipizide, lisinopril, and metformin. ALLERGIES: No known drug allergies. SOCIAL HISTORY: Denies smoking or alcohol. Lives at home with her . FAMILY HISTORY: Family history is negative. PHYSICAL EXAMINATION: GENERAL: The patient is awake, alert. VITAL SIGNS: Temperature of 97.8, pulse 89 per minute, blood pressure 129/79. SHEENT: SHEENT is unremarkable. NECK: There is no JVD. LUNGS: Lungs are equal bilaterally. No added sounds. CARDIOVASCULAR: S1 and S2 is regular. No murmurs. No pedal edema. ABDOMEN: Abdomen is soft. There is no organomegaly. NEUROLOGIC: Neurologic exam is nonfocal. MUSCULOSKELETAL: The right knee is currently in a dressing. ASSESSMENT AND PLAN: * Diabetes mellitus for which she will be placed on sliding scale insulin. * Hypertension. Blood pressure will be monitored. * Hyperlipidemia. * Obesity. * Status post right knee surgery for degenerative joint disease of the knee for which she will receive pain medications and physical therapy. MD MYRA Stinson/FRANKLYN TID: [id number] RECEIPT: [id number]
[2025-03-31 06:33] LABS: Hematocrit 29.8 % (36.0-46.0); Hemoglobin 10.0 g/dL (12.2-16.2); Mean Corpuscular Hemoglobin 27.9 pg (28.0-32.0); Mean Corpuscular Volume 83.4 fL (80.0-100.0); Nucleated Red Blood Cells % 0.0 %
[2025-03-31 06:45] LABS: Alanine Aminotransferase 11 U/L (7-40); Albumin 3.7 g/dL (3.2-4.8); Alkaline Phosphatase 58 U/L (46-116); Anion Gap 9 (5-15); BUN/Creatinine Ratio 9.7 (10.0-20.0); Blood Urea Nitrogen 10 mg/dL (9-23); Carbon Dioxide 27 mmol/L (20-31); Chloride 100 mmol/L (98-107); Sodium 136 mmol/L (136-145); Total Protein 6.2 g/dL (5.7-8.2)
[2025-03-31 06:46] LABS: Bilirubin, Total 0.6 mg/dL (0.2-1.0)
[2025-03-31 06:48] LABS: Calcium 8.3 mg/dL (8.7-10.4); Glucose 176 mg/dL (74-106); Potassium 3.2 mmol/L (3.5-5.1)
--- NOTE | 2025-03-31 07:40 | DVHPN2 ---
Progress Note Date Seen: Mar 31, 2025 Medical Necessity Reason Pt with a Central, PICC or Fol: No Subjective Patient reports: Feels worse (increased pain and swelling as expected) Objective vital signs Vital Sign Date Time Temp Pulse Resp B/P (MAP) Pulse Ox O2 Delivery O2 Flow Rate FiO2 03/31/25 06:50 88 18 140/86 03/31/25 06:22 100 03/31/25 05:00 98.7 98.7 03/30/25 20:00 Room Air* 0 21 Total Intake and Output 03/30/25 03/30/25 03/31/25 15:00 23:00 07:00 Intake Total 120 ml 400 ml 700 ml Balance 120 ml 400 ml 700 ml medications Current Medications Medications Dose Ordered Sig/Yulia Route Start Time Stop Time Status Last Admin Dose Admin Acetaminophen 650 mg Q6HP PRN PO 03/30/25 09:45 Oxycodone/ Acetaminophen 1 tab Q4HP PRN PO 03/30/25 09:45 03/30/25 16:37 1 TAB Docusate Sodium 100 mg Q12HR PO 03/30/25 10:00 03/30/25 21:10 100 MG Enoxaparin Sodium 40 mg DAILY SC 03/30/25 10:00 Nitroglycerin 0.4 mg Q5MINP PRN SL 03/30/25 09:45 Morphine Sulfate 2 mg Q30M PRN IV 03/30/25 09:45 Diphenhydramine HCl 25 mg Q4HP PRN IV 03/30/25 09:45 Ondansetron HCl 4 mg Q4HP PRN IV 03/30/25 09:45 Ketorolac Tromethamine 30 mg Q6HP PRN IV 03/30/25 09:45 04/04/25 09:44 03/30/25 12:52 30 MG Hydromorphone HCl 1 mg Q3HP PRN IV 03/30/25 12:45 03/31/25 06:20 1 MG Diagnostic Test (Pha) 1 strip ACHS 03/30/25 17:00 03/31/25 06:27 1 STRIP Insulin Human Regular ACHS SC 03/30/25 17:00 Dextrose 50 ml UD PRN IV 03/30/25 12:45 Examination: GENERAL:Normal, MSK:Abnormal laboratory and microbiology Laboratory Tests 03/31/25 05:46 Test 03/31/25 05:46 Range/Units Serum Glucose 176 H 74-106 mg/dL Problem List/Assessment/Plan Problem List/Assessment/Plan 49 year old female who is s/p right TKA POD 1 1. pain control-rec alternating between dilaudid and oral percocet 2. DVT ppx 3. CPM as ordered 4. PT 5. RICE as needed for swelling 6. patient has scheduled follow up on 04/14/2025 at 1:15 7. aquacel dressing to remain intact 8. prescriptions filled prior to surgery 9. patient is clear for discharge from orthopedic standpoint with the following recommendations Total Knee Arthroplasty Discharge Instructions Wound Care 1. You will likely have a gel-type dressing over your wound, you may keep this on for 7-14 days after leaving the hospital until your first post-op visit, unless it becomes soiled or your skin becomes irritated. If a wound vac dressing is placed on your knee this is to be left in place for one week and will be changed as needed. After your remove the dressing or wound vac, the home health nurse may place clean dry dressing over your wound. Keep wound covered, clean and dry for two weeks. 2. [place] will be removed during your initial post-op visit. If you have concerns about our wound, please call the office immediately. If nervous about staple removal can take pain pill one hour prior to appointment. 3. If there is drainage from your wound, change the dressing daily until it stops. If drainage lasts more than 10 days, call our office. 4. Low grade (up to 100 degrees) fever is common for the first week after surgery. You should take your temperature daily. If you have fevers of 101 or more, please call the office. Medication Management 1. You will be discharged with pain medication, a blood thinner (unless you were previously on a blood thinner prior to surgery) and stool softener. Please follow the instructions regarding these medications as provided by your nurse at the hospital upon discharge. 2. Blood clots in the leg are a known complication of surgery. It is very important that you take the medication to protect against clots. Depending on what you are discharged on typically it is Lovenox 40mg daily for 2 weeks or Aspirin 81mg twice daily for 4 weeks. After you finish this, you should then take baby Aspirin (81mg) once daily for 2 weeks. 3. You should restart all of your prescription medications once discharged from the hospital/surgery center unless specifically instructed otherwise. 4. Herbal supplements may be restarted 2 weeks after surgery. 5. If you have been given Coumadin as a blood thinner, please follow up with your street light servicer supervisor during the first two weeks after surgery to review medications and overall medical well-being. 6. Please note that narcotic pain medication may cause constipation. Please remember to take stool softeners (Colace) when using narcotics to help reduce the change of constipation. You should not use alcohol together with narcotic medication. Activity 1. CPM as ordered, goal is for 6 hours every day for the first 21 days of your recovery. Can break it up in to increments of 2-3 hours at a time. Most hospitals will start at 45 degrees of flexion, and increase by 5 degrees daily until the machine has been maxed out. The goal is to be at 90 degrees by first postop visit in 2 weeks. 2. No pool, jacuzzi, beach, del cid or bath for 6 weeks. Once all scabbing has fallen off patient can begin soaking and submerging knee under water for 15- minute periods at a time. 3. Physical therapy is critical in the first 2 weeks. If having issues with scheduling please inform office. 4. No running or jumping for 6 weeks. 5. Can walk and bear as much weight on the surgical leg as tolerated. No restrictions in regards to walking or standing. [facility] Instructions 1. Driving is not permitted within the first 2 weeks. 2. Your first postoperative visit will take place 2 weeks after discharge. Please call the office once you are home from the hospital to arrange this appointment. 3. Antibiotic preventative treatment is required before dental or other invasive procedures. Please ask your surgeon about this at your first postoperative visit. If you experience chest pain, shortness of breath or severe painful calf swelling, go to the nearest emergency room to be evaluated. Please call our office once your situation is stabilized. Plan discussed with: Patient My Orders My Orders Orders - JEANNETTE MILLER NP Procedure Category Date Status Time Patient Condition COMORDER 03/30/25 Transmitted Stable 09:33 R Knee 3v Xray XY 03/30/25 Resulted 09:33 Hemoglobin & LAB 04/01/25 Verified Hematocrit 07:00 Hemoglobin & LAB 04/02/25 Verified Hematocrit 07:00 Change Dressing CECIL 03/30/25 In Process 09:33 Regular Diet DIET 03/30/25 Transmitted Lunch Vital Signs CECIL 03/30/25 In Process 09:33 Weight-Bearing CECIL 03/30/25 In Process Restrictions 09:33 Acetaminophen Tablet PHA 03/30/25 In Process (Tylenol Tablet) 09:45 Oxycodone W/ Acet PHA 03/30/25 In Process 5/325mg Tab (Percocet 09:45 Docusate Sodium PHA 03/30/25 In Process Capsule (Colace 10:00 CPM PT 03/30/25 Transmitted 09:33 Pt Request For Service PT 03/30/25 Logged 09:33 Call/Page CECIL 03/30/25 In Process Hospitalist/Atten Fo 09:33 Cpm Machine To CECIL 03/30/25 In Process Operative Leg 09:33 Incentive Spirometry ORDERS 03/30/25 Transmitted 09:33 Enoxaparin Sodium PHA 03/30/25 In Process (Lovenox) 10:00 Nitroglycerin PHA 03/30/25 In Process Sublingual (Ntrostat 09:45 Morphine Sulfate PHA 03/30/25 In Process Injection 09:45 Stat Ekg For Chest CECIL 03/30/25 In Process Pain 09:33 Notify Of Changes CECIL 03/30/25 In Process From Base 09:33 Cut And Cover Line Worker For CECIL 03/30/25 In Process 24 Hours 09:33 Emergency Dysrhythmia CECIL 03/30/25 In Process Protocol 09:33 Rhythm Strips Once CECIL 03/30/25 In Process Every Shift 09:33 Oxygen By Nasal RT 03/30/25 Transmitted Cannula 09:33 * Hospitalist Consult CONS 03/30/25 Transmitted Date of Service: Mar 31, 2025 Billing Provider: ZULMA WADE MD Common Visit Codes: NOT BILLABLE JEANNETTE MILLER NP Mar 31, 2025 07:40
[2025-03-31] MEDS: POTASSIUM CHL 20MEQ/100ML 100 ML IV SCH (08:57)
--- NOTE | 2025-03-31 11:35 | DVHPN2 ---
Progress Note Date Seen: Mar 31, 2025 Medical Necessity Reason Pt with a Central, PICC or Fol: No Subjective Patient reports: No new complaints Review of Systems: HEENT:Normal, CVS:Normal, RESPIRATORY:Normal, GI:Normal, :Normal, MSK:Normal, NEURO:Normal Objective vital signs Vital Sign Date Time Temp Pulse Resp B/P (MAP) Pulse Ox O2 Delivery O2 Flow Rate FiO2 03/31/25 11:25 99 18 160/89 03/31/25 06:22 100 03/31/25 05:00 98.7 98.7 03/30/25 20:00 Room Air* 0 21 Total Intake and Output 03/30/25 03/30/25 03/31/25 15:00 23:00 07:00 Intake Total 120 ml 400 ml 700 ml Balance 120 ml 400 ml 700 ml medications Current Medications Medications Dose Ordered Sig/Yulia Route Start Time Stop Time Status Last Admin Dose Admin Acetaminophen 650 mg Q6HP PRN PO 03/30/25 09:45 Oxycodone/ Acetaminophen 1 tab Q4HP PRN PO 03/30/25 09:45 03/31/25 08:57 1 TAB Docusate Sodium 100 mg Q12HR PO 03/30/25 10:00 03/31/25 08:57 100 MG Enoxaparin Sodium 40 mg DAILY SC 03/30/25 10:00 03/31/25 08:58 40 MG Nitroglycerin 0.4 mg Q5MINP PRN SL 03/30/25 09:45 Morphine Sulfate 2 mg Q30M PRN IV 03/30/25 09:45 Diphenhydramine HCl 25 mg Q4HP PRN IV 03/30/25 09:45 Ondansetron HCl 4 mg Q4HP PRN IV 03/30/25 09:45 Ketorolac Tromethamine 30 mg Q6HP PRN IV 03/30/25 09:45 04/04/25 09:44 03/30/25 12:52 30 MG Hydromorphone HCl 1 mg Q3HP PRN IV 03/30/25 12:45 03/31/25 11:25 1 MG Diagnostic Test (Pha) 1 strip ACHS 03/30/25 17:00 03/31/25 11:31 1 STRIP Insulin Human Regular ACHS SC 03/30/25 17:00 Dextrose 50 ml UD PRN IV 03/30/25 12:45 Potassium Chloride 100 ml @ 50 mls/hr Q2H IV 03/31/25 08:30 03/31/25 12:29 Examination: GENERAL:Normal, HEENT:Normal, NECK:Normal, LUNGS:Normal, CVS:Normal, ABDOMEN:Normal, MSK:Abnormal (right knee dresssing), SKIN:Normal, NEURO:Normal, :Normal laboratory and microbiology Laboratory Tests 03/31/25 05:46 Test 03/31/25 05:46 Range/Units Serum Glucose 176 H 74-106 mg/dL Problem List/Assessment/Plan Problem List/Assessment/Plan * Diabetes mellitus for which she will be placed on sliding scale insulin. * Hypertension. Blood pressure will be monitored. * Hyperlipidemia. * Obesity. * hypokalemia: replace * Status post right knee surgery for degenerative joint disease of the knee for which she will receive pain medications and physical therapy. Plan discussed with: Patient My Orders My Orders Orders - JACQUELINE HARRELL MD Procedure Category Date Status Time Hydromorphone PHA 03/30/25 In Process Injection (Dilaudid 12:45 Glucose Blood PHA 03/30/25 In Process (Accu-Chek Comfort 17:00 Insulin R (Human) PHA 03/30/25 In Process (Insulin R) 17:00 Dextrose 50% Syringe PHA 03/30/25 In Process 12:45 Ketorolac Injection PHA 03/31/25 Transmitted (Toradol Injection) 11:30 Potassium Er Tablet PHA 03/31/25 Transmitted (Klor-Con Tablet) 11:30 NS PHA 03/31/25 Transmitted 11:30 Basic Metabolic Panel LAB 04/01/25 Verified 06:00 Complete Blood Count LAB 04/01/25 Verified 06:00 Date of Service: Mar 31, 2025 Billing Provider: JACQUELINE HARRELL MD Common Visit Codes: [id number] INP/OBS CARE(HIGH) JACQUELINE HARRELL MD Mar 31, 2025 11:35
[2025-03-31] MEDS: POTASSIUM CHL 20 Meq TABLET PO ONE ×2 (11:58→12:00)
[2025-03-31] MEDS: SODIUM CHLORIDE 0.9% 1,000 ML IV SCH (12:58)
[2025-03-31] MEDS: KETOROLAC TROMETH 30 MG/ML 1ML VIAL IV PRN (14:48)
[2025-04-01] VITALS (8 sets, daily range): BP systolic 137–153; BP diastolic 80–88; PULSE 92–104; RESP 17; TEMP 96.9–98.6; O2SAT 96–98
[2025-04-01 06:50] LABS: Hematocrit 29.0 % (36.0-46.0); Hemoglobin 9.8 g/dL (12.2-16.2); Mean Corpuscular Hemoglobin 27.8 pg (28.0-32.0); Mean Corpuscular Volume 82.6 fL (80.0-100.0); Nucleated Red Blood Cells % 0.0 %
[2025-04-01 07:04] LABS: Calcium 9.0 mg/dL (8.7-10.4); Chloride 102 mmol/L (98-107); Sodium 140 mmol/L (136-145)
[2025-04-01 07:05] LABS: Anion Gap 12 (5-15); Carbon Dioxide 26 mmol/L (20-31)
[2025-04-01 07:11] LABS: BUN/Creatinine Ratio 8.1 (10.0-20.0)
[2025-04-01 07:15] LABS: Blood Urea Nitrogen 6 mg/dL (9-23); Glucose 128 mg/dL (74-106); Potassium 3.4 mmol/L (3.5-5.1)
--- NOTE | 2025-04-01 10:50 | DVHDS2 ---
Discharge Summary Date of Admission Mar 30, 2025 at 09:53 Date of Discharge: Apr 01, 2025 Labs/Diagnostic Data: Laboratory Results Test 04/01/25 06:29 04/01/25 05:45 03/31/25 05:46 03/27/25 13:45 POC Glucose 119 mg/dl (70-106) White Blood Count 6.4 10^3/uL (4.4-10.8) Red Blood Count 3.51 10^6/uL (4.0-5.20) Hemoglobin 9.8 g/dL (12.2-16.2) Hematocrit 29.0 % (36.0-46.0) Mean Corpuscular Volume 82.6 fL (80.0-100.0) Mean Corpuscular Hemoglobin 27.8 pg (28.0-32.0) Mean Corpuscular Hemoglobin Concent 33.7 g/dL (32.0-36.0) Red Cell Distribution Width 15.7 % (11.8-14.3) Platelet Count 286 10^3/uL (140-450) Mean Platelet Volume 8.5 fL (6.9-10.8) Neutrophils (%) (Auto) 71.4 % (37.0-80.0) Lymphocytes (%) (Auto) 16.1 % (10.0-50.0) Monocytes (%) (Auto) 8.2 % (0.0-12.0) Eosinophils (%) (Auto) 4.1 % (0.0-7.0) Basophils (%) (Auto) 0.2 % (0.0-2.0) Neutrophils # (Auto) 4.6 10 ^3/uL (1.6-8.6) Lymphocytes # (Auto) 1.0 10 ^3/uL (0.4-5.4) Monocytes # (Auto) 0.5 10 ^3/uL (0-1.3) Eosinophils # (Auto) 0.3 10 ^3/uL (0-0.8) Basophils # (Auto) 0 10 ^3/uL (0-0.2) Nucleated Red Blood Cells 0.0 % Sodium Level 140 mmol/L (136-145) Potassium Level 3.4 mmol/L (3.5-5.1) Chloride Level 102 mmol/L (98-107) Carbon Dioxide Level 26 mmol/L (20-31) Anion Gap 12 (5-15) Blood Urea Nitrogen 6 mg/dL (9-23) Creatinine 0.74 mg/dL (0.550-1.02) Glomerular Filtration Rate Calc 99 mL/min (>90) BUN/Creatinine Ratio 8.1 (10.0-20.0) Serum Glucose 128 mg/dL (74-106) Calcium Level 9.0 mg/dL (8.7-10.4) Magnesium Level 1.9 mg/dL (1.6-2.6) Total Bilirubin 0.6 mg/dL (0.2-1.0) Aspartate Amino Transferase (AST) 13 U/L (13-40) Alanine Aminotransferase (ALT) 11 U/L (7-40) Alkaline Phosphatase 58 U/L (46-116) Total Protein 6.2 g/dL (5.7-8.2) Albumin 3.7 g/dL (3.2-4.8) Urine Test Negative (Negative) Test 03/23/25 11:00 Prothrombin Time 11.4 sec (9.3-11.8) Prothrombin Time INR 1.08 (0.9-1.15) Activated Partial Thromboplast Time 27.3 SEC (24.5-34.5) Urine Color Light-yellow (Yellow) Urine Clarity Clear (Clear) Urine pH 6.5 (5.0-9.0) Urine Specific [place] 1.014 (1.001-1.035) Urine Protein Negative (Negative) Urine Ketones Negative (Negative) Urine Blood Negative /uL (Negative) Urine Nitrite Negative (Negative) Urine Bilirubin Negative (Negative) Urine Urobilinogen Normal mg/dL (Negative) Urine Leukocyte Esterase Negative /uL (Negative) Urine RBC <1 /hpf (0 - 4) Urine Microscopic WBC 1 /HPF (0-5) Urine Squamous Epithelial Cells Few /hpf (<5) Urine Bacteria None seen /hpf (None Seen) Urine Hyaline Casts Few /lpf (0 - 2) Urine Glucose Normal mg/dL (Normal) Hemoglobin A1c 5.9 % A1C (<5.7) Other Laboratory Tests 04/01/25 05:45 Brief Hx & Hospital Course: see dictated note Condition at Discharge: Fair Final Diagnosis/Problems List knee surgery Discharge Disposition: Home Discharge Instruct/Medications Diet: Consistent carbohydrate, Cardiac 2g Na,low cholest Activity: No Restrictions, As Tolerated Follow Up/Referral: fu with pcp/ortho Medications: resume home meds rest meds per ortho Scheduled Amlodipine Besylate (Norvasc Tablet), 10 MG PO DAILY, (Reported) Atorvastatin Calcium (Atorvastatin Calcium), 1 TAB PO DAILY, (Reported) Glipizide (Glipizide), 5 MG PO DAILY, (Reported) Lisinopril (Lisinopril), 10 MG PO DAILY, (Reported) Metformin Hydrochloride (Metformin HCl ER), 500 MG PO DAILY, (Reported) Discharge Statement: "Patient was advised to return to the ER or call 911 if any headaches, dizziness, shortness of breath, chest pain, abdominal pain, bleeding, fevers, or worsening of medical condition. Patient was counseled about treatment plan, medications, possible side effects, patientverbalized understanding. All questions were answered to the best of my ability. This discharge took greater then 30 minutes in planning, reviewing documentation, counseling the patient, and discussing with other team members." ASSESSMENT ASSESSMENT Assessment knee surgery Date of Service: Apr 01, 2025 Billing Provider: JACQUELINE HARRELL MD Common Visit Codes: 40395-IEN/OBS DISCH DAY >30min JACQUELINE HARRELL MD Apr 01, 2025 10:50
[2025-04-01] MEDS: POTASSIUM CHL 20 Meq TABLET PO ONE (11:48)
[2025-04-01] MEDS: ONDANSETRON HCL 4 MG/2 ML VIAL IV PRN (12:39)
--- NOTE | 2025-04-01 17:57 | DVHDS ---
DATE OF DISCHARGE: 04/01/2025 HISTORY OF PRESENT ILLNESS: The patient is a 49-year-old lady who is admitted after she underwent surgery on the right knee for DJD of the knee. She has a history of diabetes, hypertension, and hyperlipidemia. HOSPITAL COURSE: The patient has done well postoperatively. The patient was hypokalemic and that has been corrected. Hemoglobin at the time of discharge is 9.8. Her hemoglobin A1c was 5.9. She will now be discharged home to resume her home medications and follow up with Orthopedics. The patient will be on also medications as per Orthopedics. FINAL DIAGNOSES: - Diabetes mellitus. - Hypertension. - Hyperlipidemia. - Obesity. - Hypokalemia. - Status post right knee surgery for DJD of the knee. Time spent in discharge planning and review of plan with the patient and nursing was 38 minutes. MD MYRA Stinson/ALEX TID: [id number] RECEIPT: [id number] [facility]
== END 2025-04-01 14:15 | disposition home or self-care (01) | DRG 470 ==
LOC: SUR 06:09 → OVERFLOW 09:53 → TELE-WESTW 11:27
PROVIDERS: ADMIT Internal Medicine; ATTEND Internal Medicine
PROC: 8E0YXBZ Computer Assisted Procedure of Lower Extremity (ICD-10-PCS; 2025-03-30)
PROC: 3E0T3BZ Introduction of Anesthetic Agent into Peripheral Nerves and Plexi, Percutaneous Approach (ICD-10-PCS; 2025-03-30)
PROC: 0SRC0JZ Replacement of Right Knee Joint with Synthetic Substitute, Open Approach (ICD-10-PCS; principal; 2025-03-30 07:37)
DX: M17.11 Unilateral primary osteoarthritis, right knee (principal); E11.9 Type 2 diabetes mellitus without complications; E66.9 Obesity, unspecified; I10 Essential (primary) hypertension; E78.5 Hyperlipidemia, unspecified; E87.6 Hypokalemia; Z82.49 Family history of ischemic heart disease and other diseases of the circulatory system; Z68.32 Body mass index [BMI] 32.0-32.9, adult
CPT/HCPCS: 36415; 73562; 80048; 80053; 81001; 81025; 82962; 83036; 83735; 85025; 85610; 85730; 86850; 86900; 86901; 97110; 97116; 97163; 97530; G0378; J0131; J1885; J2250; J2405; J2704; J3480